=== PATIENT | female | born 1970 | race Hispanic/Latino ===

== ENCOUNTER 2017-08-31 12:15 | Emergency (ER) | payer OTHER ==
[2017-08-31] MEDS ORDERED: PROCHLORPERAZINE EDISYLATE 10 MG/2 ML VIAL ONE (13:52)
== END 2017-08-31 14:22 | disposition left against medical advice (07) ==
LOC: EDH 12:15
DX: R51 Headache (principal); R11.0 Nausea; I10 Essential (primary) hypertension; Z87.442 Personal history of urinary calculi
CPT/HCPCS: 81025; 96374; 99284; J0780